=== PATIENT | male | born 1975 | race Caucasian/White ===

== ENCOUNTER → 2021-01-11 | Outpatient (CLI) | payer BC ==
[~2021-01-11] MED LIST: CALC600T17 PO; MAGN400C2 PO; ONE1TAB2 PO; PRIL20TA2 PO; PROBCAP14 PO; VITAMIN C GUMMIES PO
== END ==
LOC: M LABSMTC 11:17
PROVIDERS: ATTEND Anesthesiology
DX: Z01.818 Encounter for other preprocedural examination (principal); Z11.52 Encounter for screening for COVID-19

== ENCOUNTER 2021-01-16 10:13 | Day surgery (SDC) | payer BC ==
[~2021-01-16] VITALS: Ht 185.4 cm; Wt 89.8 kg
[~2021-01-16 10:13] MED LIST changes: +LIDOCAINE 2% 100MG/5ML SDV (FOR ANES.) As Ordered ONE; +NS 1,000 ML IV ONE; +fentaNYL 100 MCG/2 ML INJECTION (J3010) As Ordered ONE; +propofoL 500 MG/50 ML VIAL As Ordered ONE
[2021-01-16] MEDS ORDERED: propofoL 200 MG/20 ML VIAL As Ordered ONE (11:35)
--- NOTE | 2021-01-16 12:26 | ROOR ---
Patient Name: Roger Renteria Procedure Date: 01/16/2021 11:19 AM Date of : 1975 Age: 45 Room: [facility] Gender: Male Note Status: Finalized Procedure: Upper GI endoscopy Indications: Dyspepsia, Heartburn Providers: Jason Rivas MD Referring MD: Gael SHEPPARD MD Requesting Provider: Sánchez MENDIETA MD Medicines: Monitored Anesthesia Care Complications: No immediate complications. Procedure: Pre-Anesthesia Assessment: - Prior to the procedure, a History and Physical was performed, and patient medications and allergies were reviewed. The patient is competent. The risks and benefits of the procedure and the sedation options and risks were discussed with the patient. All questions were answered and informed consent was obtained. Patient identification and proposed procedure were verified by the physician, the nurse and the anesthesiologist in the procedure room. Mental Status Examination: alert and oriented. Airway Examination: normal oropharyngeal airway and neck mobility. Respiratory Examination: clear to auscultation. CV Examination: normal. Prophylactic Antibiotics: The patient does not require prophylactic antibiotics. Prior Anticoagulants: The patient has taken no previous anticoagulant or antiplatelet agents. ASA Grade Assessment: II - A patient with mild systemic disease. After reviewing the risks and benefits, the patient was deemed in satisfactory condition to undergo the procedure. The anesthesia plan was to use monitored anesthesia care (MAC). Immediately prior to administration of medications, the patient was re-assessed for adequacy to receive sedatives. The heart rate, respiratory rate, oxygen saturations, blood pressure, adequacy of pulmonary ventilation, and response to care were monitored throughout the procedure. The physical status of the patient was re-assessed after the procedure. The Endoscope was introduced through the mouth, and advanced to the second part of duodenum. The upper GI endoscopy was accomplished without difficulty. The patient tolerated the procedure well. Findings: The Z-line was regular and was found 45 cm from the incisors. Scattered mild inflammation characterized by erythema and granularity was found in the gastric antrum. Biopsies were taken with a cold forceps for histology. Biopsies were taken with a cold forceps for Helicobacter pylori testing. Verification of patient identification for the specimen was done by the physician and nurse using the patient's name, date and medical record number. Estimated blood loss was minimal. The duodenal bulb and second portion of the duodenum were normal. Impression: - Z-line regular, 45 cm from the incisors. - Gastritis. Biopsied. - Normal duodenal bulb and second portion of the duodenum. Recommendation: - Patient has a contact number available for emergencies. The signs and symptoms of potential delayed complications were discussed with the patient. Return to normal activities tomorrow. Written discharge instructions were provided to the patient. - High fiber diet. - Continue present medications. - Await pathology results. - Follow an antireflux regimen. - Telephone GI clinic for pathology results in 2 weeks. - Return to primary care physician. Procedure Code(s): --- Professional --- 52772, Esophagogastroduodenoscopy, flexible, transoral; with biopsy, single or multiple Diagnosis Code(s): --- Professional --- K29.70, Gastritis, unspecified, without bleeding R10.13, Epigastric pain R12, Heartburn CPT copyright 2019 [employer]. All rights reserved. The codes documented in this report are preliminary and upon wagon driver salesperson review may be revised to meet current compliance requirements. Jason Rivas MD Jason Rivas MD 01/16/2021 12:26:27 PM Electronically signed by Jason Rivas MD Number of Addenda: 0 Note Initiated On: 01/16/2021 11:19 AM Estimated Blood Loss: Estimated blood loss was minimal.
--- NOTE | 2021-01-16 12:30 | ROOR ---
Patient Name: Roger Renteria Procedure Date: 01/16/2021 11:22 AM Date of : 1975 Age: 45 Room: [facility] Gender: Male Note Status: Finalized Procedure: Colonoscopy Indications: Screening in patient at increased risk: Family history of 1st-degree relative with colorectal cancer before age 60 years, Screening patient at increased risk: Family history of colorectal cancer in multiple 1st-degree relatives Providers: Jason Rivas MD Referring MD: Sánchez MENDIETA MD Requesting Provider: Medicines: Monitored Anesthesia Care Complications: No immediate complications. Procedure: Pre-Anesthesia Assessment: - Prior to the procedure, a History and Physical was performed, and patient medications and allergies were reviewed. The patient is competent. The risks and benefits of the procedure and the sedation options and risks were discussed with the patient. All questions were answered and informed consent was obtained. Patient identification and proposed procedure were verified by the physician, the nurse and the anesthesiologist in the procedure room. Mental Status Examination: alert and oriented. Airway Examination: normal oropharyngeal airway and neck mobility. Respiratory Examination: clear to auscultation. CV Examination: normal. Prophylactic Antibiotics: The patient does not require prophylactic antibiotics. Prior Anticoagulants: The patient has taken no previous anticoagulant or antiplatelet agents. ASA Grade Assessment: II - A patient with mild systemic disease. After reviewing the risks and benefits, the patient was deemed in satisfactory condition to undergo the procedure. The anesthesia plan was to use monitored anesthesia care (MAC). Immediately prior to administration of medications, the patient was re-assessed for adequacy to receive sedatives. The heart rate, respiratory rate, oxygen saturations, blood pressure, adequacy of pulmonary ventilation, and response to care were monitored throughout the procedure. The physical status of the patient was re-assessed after the procedure. The Colonoscope was introduced through the anus and advanced to the terminal ileum, with identification of the appendiceal orifice and IC valve. The colonoscopy was performed without difficulty. The patient tolerated the procedure well. The quality of the bowel preparation was good. The terminal ileum, ileocecal valve, appendiceal orifice, and rectum were photographed. Scope insertion time was 2 minutes. Scope withdrawal time was 8 minutes. The total duration of the procedure was 10 minutes. Findings: The perianal and digital rectal examinations were normal. The terminal ileum appeared normal. Patchy moderate mucosal changes characterized by congestion (edema), erythema and loss of vascularity were found from sigmoid to descending colon. Biopsies were taken with a cold forceps for histology. Verification of patient identification for the specimen was done by the physician and nurse using the patient's name, date and medical record number. Estimated blood loss was minimal. Non-bleeding external and internal hemorrhoids were found during retroflexion. The hemorrhoids were small. Impression: - The examined portion of the ileum was normal. - Patchy moderate mucosal changes were found from sigmoid to descending colon secondary to colitis. Biopsied. - Non-bleeding external and internal hemorrhoids. Recommendation: - Patient has a contact number available for emergencies. The signs and symptoms of potential delayed complications were discussed with the patient. Return to normal activities tomorrow. Written discharge instructions were provided to the patient. - High fiber diet. - Continue present medications. - Use fiber, for example Citrucel, Fibercon, Konsyl or Metamucil. - Await pathology results. - Repeat colonoscopy in 5 years for screening purposes and due to family history of colon cancer. - Telephone GI clinic for pathology results in 2 weeks. - Return to referring physician. Procedure Code(s): --- Professional --- 08265, Colonoscopy, flexible; with biopsy, single or multiple Diagnosis Code(s): --- Professional --- K64.8, Other hemorrhoids K52.9, Noninfective gastroenteritis and colitis, unspecified Z80.0, Family history of malignant neoplasm of digestive organs CPT copyright 2019 [employer]. All rights reserved. The codes documented in this report are preliminary and upon vice president education review may be revised to meet current compliance requirements. Jason Rivas MD Jason Rivas MD 01/16/2021 12:29:21 PM Electronically signed by Jason Rivas MD Number of Addenda: 0 Note Initiated On: 01/16/2021 11:22 AM Estimated Blood Loss: Estimated blood loss was minimal.
[2021-01-16 12:36] VITALS: BP 132/84
== END 2021-01-16 12:39 | disposition home or self-care (01) ==
LOC: M OPP 10:13
PROVIDERS: ATTEND Internal Medicine Gastroenterology
DX: Z12.11 Encounter for screening for malignant neoplasm of colon (principal); Z80.0 Family history of malignant neoplasm of digestive organs; R10.13 Epigastric pain; R11.2 Nausea with vomiting, unspecified; D12.6 Benign neoplasm of colon, unspecified; K64.8 Other hemorrhoids; D13.1 Benign neoplasm of stomach; K52.9 Noninfective gastroenteritis and colitis, unspecified; K29.70 Gastritis, unspecified, without bleeding; K21.9 Gastro-esophageal reflux disease without esophagitis; L30.9 Dermatitis, unspecified; F17.220 Nicotine dependence, chewing tobacco, uncomplicated; Z79.899 Other long term (current) drug therapy
CPT/HCPCS: 43239; 45380; 88305; J3010

== ENCOUNTER → 2021-01-19 | Outpatient (CLI) | payer BC ==
[~2021-01-19] MED LIST changes: +E-Z-GAS II EFFERVESCENT PACKET (SODIUM BICARB./CITRIC ACID/SIMETHICONE) As Ordered ONE; +E-Z-HD 98% w/w 340GM SUSP BTL As Ordered ONE; +E-Z-PAQUE 96% w/w SUSP 176GM BTL As Ordered ONE; -LIDOCAINE 2% 100MG/5ML SDV (FOR ANES.) As Ordered ONE; -NS 1,000 ML IV ONE; -fentaNYL 100 MCG/2 ML INJECTION (J3010) As Ordered ONE; -propofoL 500 MG/50 ML VIAL As Ordered ONE
--- NOTE | 2021-01-19 16:46 | REP ---
INDICATION: PERIUMBILICAL PAIN, ABD PAIN, NAUSEA, VOMITING. COMPARISON: None TECHNIQUE: This procedure was performed by [facility], under the direct supervision of Dr. Vicente. Images were reviewed with Dr. Vicente prior to dictation. Liquid barium and gas producing crystals were given in the erect position, as well as liquid barium in the prone oblique position in order to perform a double contrast upper GI examination. Additionally liquid barium was given at the end of the examination in order to perform a small-bowel follow-through. FINDINGS: The linesperson film shows no organomegaly or pathological masses. The intestinal gas pattern is unremarkable. The oral and pharyngeal stages of deglutition were unremarkable. Esophageal transport is prompt and efficient and there is no evidence of esophagitis, stricture, or mucosal ring. There is no evidence of a hiatal hernia. Gastroesophageal reflux was visualized in the distal esophagus. The stomach dalton are normally outlined. The rugal folds are smooth and regular. There is no gastritis, neoplasm, or ulcerative disease. The duodenal dalton are normally outlined. The mucosal folds are smooth and regular. There is no duodenitis, peptic ulcer disease or neoplasm. The visualized portion of the proximal small bowel appears normal in course and caliber. The barium column was followed through the small bowel to the level of the terminal ileum. Small bowel transit time is approximately 170 minutes. During fluoroscopy gentle palpation shows all loops are freely movable and pliable. There is no fixed angulated loops. The small bowel mucosal pattern is normal in course and caliber. There is no transition to suggest a partial small bowel obstruction. Spot filming of the terminal ileum shows it to be unremarkable. IMPRESSION: Reflux was visualized into the distal esophagus. Unremarkable small bowel follow-through. 0.8 minutes of fluoroscopy time was utilized for this procedure. Some fluoroscopic images are performed with last image hold technology. These images require no additional radiation. <Electronically signed by [facility] > 01/19/21 1600 <Electronically signed by Oskar Vicente > 01/19/21 1648
== END ==
LOC: M RAD 09:28 → EDUNIT# 10:00
PROVIDERS: ATTEND Physician Assistant Medical
DX: K21.9 Gastro-esophageal reflux disease without esophagitis (principal); R10.33 Periumbilical pain; R11.2 Nausea with vomiting, unspecified

== ENCOUNTER → 2021-01-26 | Outpatient (CLI) | payer BC ==
[~2021-01-26] MED LIST changes: -E-Z-GAS II EFFERVESCENT PACKET (SODIUM BICARB./CITRIC ACID/SIMETHICONE) As Ordered ONE; -E-Z-HD 98% w/w 340GM SUSP BTL As Ordered ONE; -E-Z-PAQUE 96% w/w SUSP 176GM BTL As Ordered ONE
[2021-01-26 09:54] LABS: APPEARANCE, URINE CLEAR (CLEAR); BACTERIA, URINE AUTO NEGATIVE (NEGATIVE); BILIRUBIN, URINE AUTO NEGATIVE (NEGATIVE); BLOOD, URINE BLOOD NEGATIVE (NEGATIVE); COLOR, URINE YELLOW (YELLOW); GLUCOSE, URINE (UA) AUTO NEGATIVE (NEGATIVE); KETONE, URINE AUTO NEGATIVE (NEGATIVE); LEUKOCYTE ESTERASE, URINE AUTO NEGATIVE (NEGATIVE); NITRITE, URINE AUTO NEGATIVE (NEGATIVE); PROTEIN, URINE AUTO NEGATIVE (NEGATIVE); RBC, URINE AUTO 0 /HPF (0-3); SPECIFIC GRAVITY URINE AUTO 1.008 (1.002-1.035); SQUAMOUS EPITHELIAL CELL UR AU 0 /HPF (0-6); UROBILINOGEN, URINE AUTO 0.2 mg/dL (0.0-2.0); WBC, URINE AUTO 1 /HPF (0-3)
[2021-01-26 09:59] LABS: EOS % 0.5 % (0.0-3.0); HEMATOCRIT 47.1 % (42.0-52.0); LYMPH # 1.3 10^3/uL (1.5-5.0); LYMPH % 32.1 % (24.0-44.0); MEAN CORPUSCULAR HEMOGLOBIN 33.9 pg (27.0-33.0); MEAN CORPUSCULAR VOLUME 99.8 fl (80.0-96.0); MONO # 0.5 10^3/uL (0.0-0.8); NEUTROPHILS # 2.3 10^3/uL (1.5-8.5); NEUTROPHILS % 54.2 % (36.0-66.0); PLATELET COUNT, AUTOMATED 231 10^3/uL (150-450); RED BLOOD COUNT 4.72 10^6/uL (4.30-6.10); WHITE BLOOD COUNT 4.2 10^3/uL (4.0-10.0)
[2021-01-26 10:26] LABS: ERYTHROCYTE SEDIMENTATION RATE 3 mm/hr (0-15)
[2021-01-29 05:06] LABS: IGASUB2 270.2 mg/dL (73.2-301.2); IGASUB3 >119.9 mg/dL (13.4-97.9); IgA SERUM (part of Subclasses) 358 mg/dL (90-386); TISSUE TRANSGLUTAMINASE IgA <2 U/mL (0-3)
== END ==
LOC: M LAB 09:14
PROVIDERS: ATTEND Internal Medicine Gastroenterology
DX: R10.30 Lower abdominal pain, unspecified (principal)

== ENCOUNTER → 2021-02-05 | Outpatient (CLI) | payer BC ==
--- NOTE | 2021-02-05 10:15 | REP ---
INDICATION: LOWER ABD PAIN COMPARISON: None TECHNIQUE: Real time B-mode gonzalez scale ultrasound examination using curved array transducer. FINDINGS: Liver, spleen, and pancreas are normal in contour, size, echogenicity, and overall appearance. No focal hepatic, splenic or pancreatic lesions are identified. Gallbladder is normal without gallstones, wall thickening, or pericholecystic fluid. No biliary ductal dilatation is appreciated and the common bile duct measures 3.7 mm diameter. The bilateral kidneys are normal in reniform shape without hydronephrosis or obvious abnormality. Right kidney measures 13.0 x 6.9 x 5.1 cm. Left kidney measures 11.7 x 6.4 x 5.5 cm Abdominal aorta appears normal and measures 2.4 cm maximal diameter. No ascites. A small periumbilical hernia measuring 12 x 11 x 10 mm cannot be excluded. IMPRESSION: Essentially normal complete abdominal ultrasound. Cannot exclude small fat containing periumbilical hernia. <Electronically signed by Mychal Dowell > 02/05/21 1016
--- NOTE | 2021-02-05 12:43 | REP ---
INDICATION: LOWER ABD PAIN. Bilateral inguinal and bladder sonography. Lower abdominal pain. Rule out hernia or bladder abnormality. COMPARISON: None. TECHNIQUE: Bilateral inguinal soft tissue sonography and bladder sonography are carried out. FINDINGS: The urine filled bladder demonstrates smooth bladder dalton. Emptying ureteral jets are observed bilaterally on interrogation of the bladder lumen with color Doppler. Filled bladder volume is calculated at 776 mL. Postvoid there is 32 mL calculated residual, 4%. No bladder mass lesion is seen. Abdominal fat is seen advancing down the inguinal canals with Valsalva bilaterally. The right inguinal canal is only 1.1 cm at rest and 1.3 cm with Valsalva. Left inguinal canal measurements are 1.9 cm at rest and 1.6 cm with Valsalva. There is no evidence of bowel or fluid collection. IMPRESSION: Slightly increased bladder capacity, 776 mL. Otherwise negative bladder sonography. Small fat containing inguinal hernias cannot be excluded. <Electronically signed by Cameron Mc > 02/05/21 [id number]
== END ==
LOC: M RAD 09:12
PROVIDERS: ATTEND Internal Medicine Gastroenterology
DX: K42.9 Umbilical hernia without obstruction or gangrene (principal)

== ENCOUNTER → 2021-08-21 | Outpatient (CLI) | payer BC ==
--- NOTE | 2021-08-21 10:30 | REP ---
INDICATION: RUQ PAIN, NAUSEA/VOMITING. COMPARISON: None. TECHNIQUE/RADIOTRACER AND DOSE: 6.6 mCi of Technetium-99m mebrofenin was injected and sequential anterior images are acquired. 65 minutes after the mebrofenin injection, the patient consumed 8 ounces Ensure and an additional 60 minutes of imaging was acquired. Regions of interest are plotted around the gallbladder. FINDINGS: The initial hepatocellular parenchymal uptake phase is normal and homogeneous. Intra- and extra-hepatic bile ducts are labeled by the 10-minute image. The gallbladder is first labeled on the 20-minute image. There is normal washout from the liver parenchyma into the gallbladder and small intestine on subsequent images. The gallbladder ejection fraction is 50%. Values greater than 35% are considered normal with this technique. IMPRESSION: Normal hepatobiliary scan and normal gallbladder ejection fraction. <Electronically signed by Cameron Mc > 08/21/21 1020
== END ==
LOC: M RAD 07:51
PROVIDERS: ATTEND Physician Assistant Medical
DX: R10.11 Right upper quadrant pain (principal); R11.2 Nausea with vomiting, unspecified
CPT/HCPCS: 78227; A9537

== ENCOUNTER → 2021-09-29 | Outpatient (CLI) | payer BC ==
--- NOTE | 2021-09-29 13:50 | REP ---
INDICATION: NAUSEA W/ VOMITING, RUQ PAIN. COMPARISON: None. TECHNIQUE/RADIOTRACER AND DOSE: Following the intravenous administration of 1.07 mCi technetium 99 M sulfur colloid in 2 scrambled eggs and 6 oz of water, multiple images of the upper abdomen are performed in the anterior and posterior projections for 90 minutes. FINDINGS: The gastric activity is measured. At the end of 90 minutes 27% of the ingested activity has emptied from the stomach. The T1/2 is 156 minutes which is increased. IMPRESSION: Somewhat delayed gastric emptying. <Electronically signed by Oskar Vicente > 09/29/21 [id number]
== END ==
LOC: M RAD 11:47
PROVIDERS: ATTEND Physician Assistant Medical
DX: R11.2 Nausea with vomiting, unspecified (principal); R10.11 Right upper quadrant pain
CPT/HCPCS: 78264; A9541

== ENCOUNTER → 2021-10-05 | Outpatient (CLI) | payer BC ==
[~2021-10-05] MED LIST changes: +GASTROGRAFIN SOLUTION 30ML (Q9963) As Ordered ONE; +ISOVUE-370 76% 100ML VIAL As Ordered ONE
--- NOTE | 2021-10-05 17:23 | REP ---
INDICATION: MESINTERIC LYMPHADNITIS. COMPARISON: None TECHNIQUE: Axial contrast-enhanced images from the lung bases to the pubic symphysis using oral and 100 cc Isovue 370 intravenous contrast material. Coronal and sagittal reformations obtained. This CT examination was performed using the following dose reduction techniques: Automated exposure control, adjustment of mA and/or kv according to the patient's size, and the use of iterative reconstruction technique. FINDINGS: Liver, spleen, pancreas, gallbladder, bilateral adrenal glands and kidneys are normal. The enteric system including stomach, small, and large bowel appears normal. No evidence for obstruction or acute inflammatory process. Normal terminal ileum and appendix are identified in the right lower quadrant. Few scattered sigmoid diverticula noted without acute diverticulitis. No evidence for intraperitoneal or mesenteric lymphadenopathy. Pelvis demonstrates normal bladder and age-appropriate prostate/seminal vesicles. No ascites. No free air. No intraperitoneal or retroperitoneal adenopathy. Abdominal aorta and vasculature appear normal. Musculoskeletal structures are intact and without acute osseous abnormality. IMPRESSION: No acute abdominopelvic pathology appreciated. No evidence for adenopathy and specifically no evidence for mesenteric adenitis. <Electronically signed by Mychal Dowell > 10/05/21 [id number]
== END ==
LOC: M RAD 15:33
PROVIDERS: ATTEND Internal Medicine Medical Oncology
DX: I89.0 Lymphedema, not elsewhere classified (principal)

== ENCOUNTER → 2021-10-12 | Outpatient (CLI) | payer BC ==
[~2021-10-12] MED LIST changes: -GASTROGRAFIN SOLUTION 30ML (Q9963) As Ordered ONE; -ISOVUE-370 76% 100ML VIAL As Ordered ONE; +LISI-898 PO
[2021-10-12 16:58] LABS: FREE T4 0.83 NG/DL (0.76-1.46); THYROID STIMULATING HORMONE 0.771 uIU/ML (0.358-3.740)
[2021-10-12 17:08] LABS: HEMOGLOBIN A1c 5.1 %
== END ==
LOC: M LAB 15:47
PROVIDERS: ATTEND Physician Assistant Medical
DX: R11.2 Nausea with vomiting, unspecified (principal)